=== PATIENT | male | born 1965 ===

== ENCOUNTER → 2016-09-08 | Outpatient (CLI) | payer OTHER ==
[~2016-09-08] MED LIST: ALUM-35 PO; B-COCAP20 PO; BND25 PO; BUSP-8 PO; BUSP30TA2 PO; DEXAMETHASONE OPR; DLN100 PO; HALO10TA17 PO; MIRT15TA3 PO; NEPA0.6D OPR; SERT-234 PO; TRIH5TAB3 PO; [UNRECOGNIZED DRUG - OTHER] OPR
--- NOTE | 2016-09-24 08:14 | CODING QUERY NO DIAGNOSIS ---
TREATMENT RENDERED WITHOUT A DIAGNOSIS To promote full compliance with coding requirements relating to patient care, physician participation is requested in all cases of brim ironer hand uncertainty. Please assist us with providing a diagnosis/symptom for the test(s) below: A diagnosis/symptom was not documented on your Order. A valid diagnosis/symptom is required to bill all insurances. Please remember that we are unable to code a diagnosis of rule out, probable, possible, questionable, or suspected. Tests that require a diagnosis: * PHENYTOIN (DILANTIN) LEVEL DIAGNOSIS: Provider Signature: Date: Thank you Alessandra Uledi [employer] Information Management Once completed, please kindly fax back to [phone] For questions please call [phone]
== END ==
LOC: C.LABSPEC 11:58
PROVIDERS: ATTEND Family Medicine
DX: Z01.89 Encounter for other specified special examinations (principal)

== ENCOUNTER → 2016-09-18 | Outpatient (CLI) | payer OTHER ==
[2016-09-18 16:42] LABS: HEMATOCRIT 34.4 % (42-52); MEAN CELL VOLUME 86.9 fL (80-100); MEAN CORPUSCULAR HEMOGLOBIN 32.3 pg (25-34); MEAN PLATELET VOLUME 9.4 fL (7.4-10.4); PLATELET COUNT 228 K/uL (130-400); RED BLOOD COUNT 3.96 M/uL (4.7-6.1); WHITE BLOOD COUNT 9.14 K/uL (4.8-10.8)
[2016-09-18 16:51] LABS: MEAN CORPUSCULAR HGB CONC 37.2 g/dl (32-36)
[2016-09-18 18:02] LABS: ALB/GLOB RATIO 1.2 (0.9-2); ALKALINE PHOSPHATASE 124 U/L (45-117); ALT/SGPT 26 U/L (12-78); AST/SGOT 16 U/L (15-37); BLOOD UREA NITROGEN 7 mg/dl (7-18); BUN/CREATININE RATIO 9.4 (10-20); CALCIUM 8.5 mg/dl (8.5-10.1); CARBON DIOXIDE 24 mmol/L (21-32); CHLORIDE 92 mmol/L (98-107); CREATININE 0.71 mg/dl (0.60-1.40); GLUCOSE 121 mg/dl (70-99); SODIUM 125 mmol/L (136-145)
--- NOTE | 2016-09-20 09:28 | CODING QUERY NO DIAGNOSIS ---
TREATMENT RENDERED WITHOUT A DIAGNOSIS To promote full compliance with coding requirements relating to patient care, physician participation is requested in all cases of burn center nurse uncertainty. Please assist us with providing a diagnosis/symptom for the test(s) below: A diagnosis/symptom was not documented on your Order. A valid diagnosis/symptom is required to bill all insurances. Please remember that we are unable to code a diagnosis of rule out, probable, possible, questionable, or suspected. DATE OF SERVICE: 09/18/16 Tests that require a diagnosis: * CBC W/DIFF DIAGNOSIS: * DILANTIN LEVEL DIAGNOSIS: * KEPPRA DIAGNOSIS: Provider Signature: Date: [facility] Once completed, please kindly fax back to [phone] For questions please call [phone]
== END ==
LOC: C.LABSPEC 16:29
DX: Z01.89 Encounter for other specified special examinations (principal)

== ENCOUNTER → 2016-09-21 | Outpatient (CLI) | payer OTHER ==
--- NOTE | 2016-09-24 15:07 | CODING QUERY NO DIAGNOSIS ---
TREATMENT RENDERED WITHOUT A DIAGNOSIS 69 To promote full compliance with coding requirements relating to patient care, physician participation is requested in all cases of oil tanker captain uncertainty. Please assist us with providing a diagnosis/symptom for the test(s) below: A diagnosis/symptom was not documented on your Order. A valid diagnosis/symptom is required to bill all insurances. Please remember that we are unable to code a diagnosis of rule out, probable, possible, questionable, or suspected. DOS 09/21/16 Tests that require a diagnosis: * DILANTIN (PTN) DIAGNOSIS: Provider Signature: Date: Thank you Brenna Ruff [employer] Information Management Once completed, please kindly fax back to [phone] For questions please call [phone]
== END ==
LOC: C.LABSPEC 13:01
PROVIDERS: ATTEND Family Medicine
DX: Z01.89 Encounter for other specified special examinations (principal)